=== PATIENT | male | born 1965 | race African-American/Black ===

== ENCOUNTER 2018-05-20 23:11 | Emergency (ER) | payer MEDICAID ==
[~2018-05-20] VITALS: Ht 180.3 cm; Wt 86.3 kg
[2018-05-21 01:21] LABS: BASOPHILS % 0.4 % (0.0-2.0); EOSINOPHILS % 1.7 % (0.0-5.0); HEMATOCRIT. 37.7 % (42.0-52.0); HEMOGLOBIN. 12.1 g/dL (14.0-18.0); LYMPHOCYTES % 67.2 % (20.0-50.0); MEAN CORPUSCULAR HEMOGLOBIN 25.6 pg (28.0-32.0); MEAN CORPUSCULAR VOLUME 79.8 fL (80.0-94.0); MEAN PLATELET VOLUME 8.4 fl (7.4-10.4); MONOCYTES % 10.4 % (2.0-8.0); NEUTROPHILS % 20.3 % (40.0-76.0); PLATELET 180 x1000/uL (130-400); RED BLOOD CELL COUNT 4.72 mill/uL (4.7-6.1)
[2018-05-21 01:29] LABS: CHLORIDE 105 mEq/L (98-107)
[2018-05-21 01:41] LABS: ETHANOL BLOOD < 10 mg/dL
[2018-05-21 01:44] LABS: PARTIAL THROMBOPLASTIN TIME 30.7 sec (23.4-31.0); PROTHROMBIN TIME 10.4 sec (9.1-11.1)
[2018-05-21 02:30] LABS: CLARITY URINE CLEAR (CLEAR); COLOR URINE YELLOW (YELLOW); KETONES URINE NEGATIVE (NEGATIVE); LEUKOCYTE ESTERASE URINE NEGATIVE (NEGATIVE); NITRITE URINE NEGATIVE (NEGATIVE); OCCULT BLOOD URINE NEGATIVE (NEGATIVE); PROTEIN URINE NEGATIVE (NEGATIVE); SPECIFIC GRAVITY URINE 1.005 (1.005-1.030); UROBILINOGEN URINE 0.2 E.U./dL (0.2-1.0)
[2018-05-21 02:42] LABS: *AMPHETAMINES SCREEN URINE NEGATIVE (NEGATIVE); *BARBITURATES SCREEN URINE NEGATIVE (NEGATIVE); *BENZODIAZEPINES SCREEN URINE NEGATIVE (NEGATIVE); *COCAINE SCREEN URINE NEGATIVE (NEGATIVE)
[2018-05-21 02:44] LABS: CANNABINOID URINE SCREEN NEGATIVE (NEGATIVE); METHADONE URINE SCREEN NEGATIVE (NEGATIVE); OPIATES URINE SCREEN NEGATIVE (NEGATIVE); PHENCYCLIDINE URINE SCREEN NEGATIVE (NEGATIVE)
[2018-05-21 12:20] VITALS: BP 128/77
== END 2018-05-21 14:14 ==
LOC: ER 23:31
DX: T65.92XA Toxic effect of unspecified substance, intentional self-harm, initial encounter (principal); F44.81 Dissociative identity disorder; R45.850 Homicidal ideations; E11.9 Type 2 diabetes mellitus without complications; E03.9 Hypothyroidism, unspecified; Y92.89 Other specified places as the place of occurrence of the external cause
CPT/HCPCS: 36415; 80053; 80305; 80307; 80329; 81003; 82140; 82962; 85025; 85610; 85730; 93005; 99285; G0482

== ENCOUNTER 2018-11-18 00:49 | Emergency (ER) | payer MEDICAID ==
[~2018-11-18] VITALS: Ht 177.8 cm; Wt 73.0 kg
[2018-11-18 03:34] LABS: BASOPHILS % 0.4 % (0.0-2.0); EOSINOPHILS % 2.6 % (0.0-5.0); HEMATOCRIT. 33.7 % (42.0-52.0); HEMOGLOBIN. 10.9 g/dL (14.0-18.0); MEAN CORPUSCULAR HEMOGLOBIN 26.7 pg (28.0-32.0); MEAN CORPUSCULAR VOLUME 82.6 fL (80.0-94.0); MEAN PLATELET VOLUME 8.5 fl (7.4-10.4); MONOCYTES % 10.6 % (2.0-8.0); NEUTROPHILS % 38.4 % (40.0-76.0); PLATELET 198 x1000/uL (130-400); RED BLOOD CELL COUNT 4.08 mill/uL (4.7-6.1); RED CELL DISTRIBUTION WIDTH 14.8 % (11.6-14.6)
[2018-11-18 03:40] LABS: CHLORIDE 111 mEq/L (98-107)
[2018-11-18 03:47] LABS: ETHANOL BLOOD < 10 mg/dL
[2018-11-18 06:43] LABS: CLARITY URINE CLEAR (CLEAR); COLOR URINE YELLOW (YELLOW); KETONES URINE NEGATIVE (NEGATIVE); LEUKOCYTE ESTERASE URINE NEGATIVE (NEGATIVE); NITRITE URINE NEGATIVE (NEGATIVE); OCCULT BLOOD URINE NEGATIVE (NEGATIVE); PH URINE 7.5 (4.5-8.0); PROTEIN URINE TRACE (NEGATIVE); SPECIFIC GRAVITY URINE 1.016 (1.005-1.030); UROBILINOGEN URINE 0.2 E.U./dL (0.2-1.0)
[2018-11-18 07:17] LABS: *AMPHETAMINES SCREEN URINE NEGATIVE (NEGATIVE); *BARBITURATES SCREEN URINE NEGATIVE (NEGATIVE); *BENZODIAZEPINES SCREEN URINE NEGATIVE (NEGATIVE); *COCAINE SCREEN URINE NEGATIVE (NEGATIVE); METHADONE URINE SCREEN NEGATIVE (NEGATIVE); OPIATES URINE SCREEN NEGATIVE (NEGATIVE)
[2018-11-18 07:19] LABS: CANNABINOID URINE SCREEN NEGATIVE (NEGATIVE); PHENCYCLIDINE URINE SCREEN NEGATIVE (NEGATIVE)
[2018-11-18] MEDS ORDERED: LORAZEPAM 1MG TABLET PO ONE (09:00)
[2018-11-18] MEDS ORDERED: LORAZEPAM 2MG/ML CPJ IM PRN (09:30)
[2018-11-18] MEDS ORDERED: IBUPROFEN 400MG TABLET PO ONE (20:45)
[2018-11-18] MEDS ORDERED: LEVETIRACETAM 500MG PREMIX 100 ML IV ONE (21:00)
[2018-11-18] MEDS ORDERED: LEVETIRACETAM 500MG TABLET PO ONE (21:30)
[2018-11-19] MEDS ORDERED: ABAC1TAB14 MT (12:17)
[2018-11-19] MEDS ORDERED: QUET400T11 PO (12:17)
[2018-11-19] MEDS ORDERED: LEVO50TA8 PO (12:22)
[2018-11-19] MEDS ORDERED: METF500T MT (12:22)
[2018-11-19] MEDS ORDERED: OXYB5TAB11 MT (12:36)
[2018-11-19] MEDS ORDERED: GABA-531 PO (12:36)
[2018-11-19] MEDS ORDERED: NON FORMULARY PATIENT HOME MED XX SCH (13:15)
[2018-11-19] MEDS ORDERED: QUETIAPINE FUMARATE 50MG TABLET PO SCH (13:15)
[2018-11-19] MEDS ORDERED: OXYBUTYNIN CHLORIDE 5MG TABLET PO ONE (13:15)
[2018-11-19] MEDS ORDERED: METFORMIN HCL 500MG TABLET PO ONE (13:15)
[2018-11-19] MEDS ORDERED: GABAPENTIN 300MG CAPSULE PO ONE (13:15)
[2018-11-19] MEDS ORDERED: QUETIAPINE FUMARATE 50MG TABLET PO NR (14:30)
[2018-11-20] MEDS ORDERED: QUETIAPINE FUMARATE 50MG TABLET PO SCH (07:44)
[2018-11-20] MEDS ORDERED: GABAPENTIN 300MG CAPSULE PO ONE (07:45)
[2018-11-20] MEDS ORDERED: OXYBUTYNIN CHLORIDE 5MG TABLET PO ONE (07:45)
[2018-11-20] MEDS ORDERED: METFORMIN HCL 500MG TABLET PO ONE (07:45)
[2018-11-20] MEDS ORDERED: LEVOTHYROXINE SODIUM 50MCG TABLET PO ONE (08:00)
[2018-11-20 19:40] VITALS: BP 133/88
== END 2018-11-20 20:00 ==
LOC: ER 00:49
DX: R45.851 Suicidal ideations (principal); D64.9 Anemia, unspecified; I10 Essential (primary) hypertension; F31.9 Bipolar disorder, unspecified; E03.9 Hypothyroidism, unspecified; F20.9 Schizophrenia, unspecified; E11.9 Type 2 diabetes mellitus without complications; F17.200 Nicotine dependence, unspecified, uncomplicated
CPT/HCPCS: 36415; 71045; 80053; 80305; 80320; 81003; 82962; 85025; 96372; 99285; J2060; Z7610; J1953; G0480

== ENCOUNTER 2018-12-23 06:29 | Emergency (ER) | payer MEDICAID ==
[~2018-12-23] VITALS: Ht 170.2 cm; Wt 84.0 kg
[~2018-12-23 06:29] MED LIST: ABAC1TAB14 MT; GABA-531 PO; LEVO50TA8 PO; METF500T MT; OXYB5TAB11 MT; QUET400T11 PO
[2018-12-23 08:11] LABS: BASOPHILS % 0.6 % (0.0-2.0); EOSINOPHILS % 1.6 % (0.0-5.0); HEMATOCRIT. 38.2 % (42.0-52.0); HEMOGLOBIN. 12.2 g/dL (14.0-18.0); MEAN CORPUSCULAR HEMOGLOBIN 26.6 pg (28.0-32.0); MEAN CORPUSCULAR VOLUME 82.9 fL (80.0-94.0); MEAN PLATELET VOLUME 8.4 fl (7.4-10.4); NEUTROPHILS % 25.8 % (40.0-76.0); PLATELET 227 x1000/uL (130-400); RED CELL DISTRIBUTION WIDTH 15.5 % (11.6-14.6)
[2018-12-23 08:12] LABS: CLARITY URINE CLEAR (CLEAR); COLOR URINE YELLOW (YELLOW); KETONES URINE NEGATIVE (NEGATIVE); LEUKOCYTE ESTERASE URINE NEGATIVE (NEGATIVE); NITRITE URINE NEGATIVE (NEGATIVE); OCCULT BLOOD URINE NEGATIVE (NEGATIVE); PROTEIN URINE NEGATIVE (NEGATIVE); SPECIFIC GRAVITY URINE 1.008 (1.005-1.030); UROBILINOGEN URINE 0.2 E.U./dL (0.2-1.0)
[2018-12-23 08:20] LABS: CHLORIDE 112 mEq/L (98-107)
[2018-12-23 08:41] LABS: METHADONE URINE SCREEN NEGATIVE (NEGATIVE); OPIATES URINE SCREEN NEGATIVE (NEGATIVE)
[2018-12-23 08:43] LABS: *AMPHETAMINES SCREEN URINE NEGATIVE (NEGATIVE); *BARBITURATES SCREEN URINE NEGATIVE (NEGATIVE); *BENZODIAZEPINES SCREEN URINE NEGATIVE (NEGATIVE); *COCAINE SCREEN URINE NEGATIVE (NEGATIVE); CANNABINOID URINE SCREEN NEGATIVE (NEGATIVE); PHENCYCLIDINE URINE SCREEN NEGATIVE (NEGATIVE)
[2018-12-23 08:45] LABS: ETHANOL BLOOD < 10 mg/dL
[2018-12-23 14:30] VITALS: BP 122/82
== END 2018-12-23 14:45 | disposition home or self-care (01) ==
LOC: ER 06:29
DX: F20.0 Paranoid schizophrenia (principal); F31.9 Bipolar disorder, unspecified; E11.9 Type 2 diabetes mellitus without complications; I10 Essential (primary) hypertension; Z88.0 Allergy status to penicillin; Z79.899 Other long term (current) drug therapy; Z88.8 Allergy status to other drugs, medicaments and biological substances
CPT/HCPCS: 36415; 80305; 80307; 80320; 80329; 81003; 82962; 99284; G0480

== ENCOUNTER 2019-11-21 10:35 | Emergency (ER) | payer MEDICAID ==
[~2019-11-21] VITALS: Ht 188 cm; Wt 91.0 kg
[~2019-11-21 10:35] MED LIST changes: -OXYB5TAB11 MT; +OXYB5TAB17 MT
[2019-11-21] MEDS ORDERED: LORAZEPAM 2MG/ML CPJ ONE (11:12)
[2019-11-21] MEDS ORDERED: LORAZEPAM 2MG/ML CPJ IV ONE (11:15)
[2019-11-21 11:36] LABS: BASOPHILS % 0.6 % (0.0-2.0); EOSINOPHILS % 0.4 % (0.0-5.0); HEMATOCRIT. 42.1 % (42.0-52.0); HEMOGLOBIN. 13.4 g/dL (14.0-18.0); LYMPHOCYTES % 59.7 % (20.0-50.0); MEAN CORPUSCULAR HEMOGLOBIN 27.1 pg (28.0-32.0); MEAN CORPUSCULAR VOLUME 85.3 fL (80.0-94.0); MEAN PLATELET VOLUME 9.4 fl (7.4-10.4); MONOCYTES % 8.6 % (2.0-8.0); NEUTROPHILS % 30.7 % (40.0-76.0); PLATELET 228 x1000/uL (130-400); RED BLOOD CELL COUNT 4.93 mill/uL (4.7-6.1); RED CELL DISTRIBUTION WIDTH 14.2 % (11.6-14.6)
[2019-11-21 11:42] LABS: CHLORIDE 111 mEq/L (98-107)
[2019-11-21 11:46] LABS: ETHANOL BLOOD < 10 mg/dL
[2019-11-21] MEDS ORDERED: LEVETIRACETAM 1000MG/100ML 100 ML IV NR (12:00)
[2019-11-21 12:30] LABS: CLARITY URINE CLEAR (CLEAR); COLOR URINE YELLOW (YELLOW); KETONES URINE TRACE (NEGATIVE); LEUKOCYTE ESTERASE URINE NEGATIVE (NEGATIVE); NITRITE URINE NEGATIVE (NEGATIVE); OCCULT BLOOD URINE NEGATIVE (NEGATIVE); PROTEIN URINE 2+ (NEGATIVE); SPECIFIC GRAVITY URINE 1.018 (1.005-1.030)
[2019-11-21 12:48] LABS: *AMPHETAMINES SCREEN URINE NEGATIVE (NEGATIVE); *BARBITURATES SCREEN URINE NEGATIVE (NEGATIVE); *BENZODIAZEPINES SCREEN URINE NEGATIVE (NEGATIVE); *COCAINE SCREEN URINE NEGATIVE (NEGATIVE)
[2019-11-21 12:49] LABS: CANNABINOID URINE SCREEN NEGATIVE (NEGATIVE); METHADONE URINE SCREEN NEGATIVE (NEGATIVE); OPIATES URINE SCREEN NEGATIVE (NEGATIVE); PHENCYCLIDINE URINE SCREEN NEGATIVE (NEGATIVE)
[2019-11-21 15:00] VITALS: BP 125/82
== END 2019-11-21 15:30 | disposition left against medical advice (07) ==
LOC: ER 10:35 → EDBEDREQTM 11:59 → EDBEDREQ 11:59 → ER 15:30 → CANBEDREQ 16:44
DX: G93.40 Encephalopathy, unspecified (principal); R56.9 Unspecified convulsions; R41.82 Altered mental status, unspecified; E11.9 Type 2 diabetes mellitus without complications; I10 Essential (primary) hypertension; E03.9 Hypothyroidism, unspecified; Z88.0 Allergy status to penicillin; Z88.6 Allergy status to analgesic agent; Z88.8 Allergy status to other drugs, medicaments and biological substances; Z79.899 Other long term (current) drug therapy; Z87.891 Personal history of nicotine dependence
CPT/HCPCS: 36415; 70450; 80053; 80305; 80320; 81003; 82962; 83735; 85025; 93005; 96374; 96375; 99285; J1953; J2060; Z7610; G0480

== ENCOUNTER 2021-07-19 22:35 | Emergency (ER) | payer MEDICAID ==
[~2021-07-19] VITALS: Ht 167.6 cm; Wt 83.0 kg
[~2021-07-19 22:35] MED LIST changes: -GABA-531 PO; +GABA-532 PO; -QUET400T11 PO; +QUET400T12 PO
[2021-07-19 23:57] LABS: BASOPHILS % 0.7 % (0.0-2.0); EOSINOPHILS % 0.5 % (0.0-5.0); HEMATOCRIT. 36.4 % (42.0-52.0); HEMOGLOBIN. 11.7 g/dL (14.0-18.0); LYMPHOCYTES % 57.8 % (20.0-50.0); MEAN CORPUSCULAR HEMOGLOBIN 25.8 pg (28.0-32.0); MEAN CORPUSCULAR VOLUME 80.6 fL (80.0-94.0); MEAN PLATELET VOLUME 8.4 fl (7.4-10.4); MONOCYTES % 12.8 % (2.0-8.0); NEUTROPHILS % 28.2 % (40.0-76.0); PLATELET 230 x1000/uL (130-400); RED BLOOD CELL COUNT 4.51 mill/uL (4.7-6.1); RED CELL DISTRIBUTION WIDTH 16.1 % (11.6-14.6)
[2021-07-20] MEDS ORDERED: LORAZEPAM 2MG/ML CPJ IM ONE
[2021-07-20] MEDS ORDERED: OLANZAPINE 10 MG/VIAL IM ONE
[2021-07-20 00:04] LABS: CHLORIDE 109 mEq/L (98-107)
[2021-07-20 00:09] LABS: ETHANOL BLOOD < 10 mg/dL
[2021-07-20 01:47] LABS: CLARITY URINE CLEAR (CLEAR); COLOR URINE YELLOW (YELLOW); KETONES URINE TRACE (NEGATIVE); LEUKOCYTE ESTERASE URINE NEGATIVE (NEGATIVE); NITRITE URINE NEGATIVE (NEGATIVE); OCCULT BLOOD URINE NEGATIVE (NEGATIVE); PH URINE 6.5 (4.5-8.0); PROTEIN URINE 2+ (NEGATIVE); SPECIFIC GRAVITY URINE 1.022 (1.005-1.030)
[2021-07-20 02:04] LABS: *AMPHETAMINES SCREEN URINE NEGATIVE (NEGATIVE); *BARBITURATES SCREEN URINE NEGATIVE (NEGATIVE); *BENZODIAZEPINES SCREEN URINE NEGATIVE (NEGATIVE); *COCAINE SCREEN URINE NEGATIVE (NEGATIVE)
[2021-07-20 02:05] LABS: CANNABINOID URINE SCREEN NEGATIVE (NEGATIVE); METHADONE URINE SCREEN NEGATIVE (NEGATIVE); OPIATES URINE SCREEN NEGATIVE (NEGATIVE); PHENCYCLIDINE URINE SCREEN NEGATIVE (NEGATIVE)
[2021-07-20] MEDS: FLUOXETINE HCL 10 MG CAPSULE PO SCH ×2 (11:06→21:43)
[2021-07-20] MEDS: DIVALPROEX SODIUM 250MG DR TABLET PO SCH (21:00)
[2021-07-20] MEDS ORDERED: TRAZODONE HCL 50MG TABLET PO SCH (21:00)
[2021-07-20] MEDS: RISPERIDONE 0.5MG TABLET PO SCH (21:44)
[2021-07-21] MEDS ORDERED: LEVETIRACETAM 500MG TABLET PO SCH (09:00)
[2021-07-21] MEDS: DIVALPROEX SODIUM 250MG DR TABLET PO SCH (11:02)
[2021-07-21] MEDS: RISPERIDONE 0.5MG TABLET PO SCH (11:03)
[2021-07-21] MEDS ORDERED: ABACAVIR/LAMIVUDINE/ZIDOVUDINE 300/150/300MG TABLET PO ONE (12:00)
[2021-07-21 13:08] VITALS: BP 120/83
== END 2021-07-21 14:19 ==
LOC: ER 22:35
DX: F23 Brief psychotic disorder (principal); F31.9 Bipolar disorder, unspecified; E11.9 Type 2 diabetes mellitus without complications; I10 Essential (primary) hypertension; E03.9 Hypothyroidism, unspecified; R45.851 Suicidal ideations; D64.9 Anemia, unspecified; Z20.822 Contact with and (suspected) exposure to COVID-19; Z88.8 Allergy status to other drugs, medicaments and biological substances; Z88.0 Allergy status to penicillin; Z79.84 Long term (current) use of oral hypoglycemic drugs; Z75.1 Person awaiting admission to adequate facility elsewhere
CPT/HCPCS: 36415; 80053; 80307; 80320; 80329; 82962; 84443; 85025; 96372; 99285; J2060; J3490; G0480

== ENCOUNTER 2021-08-06 00:01 | Emergency (ER) | payer MEDICAID ==
[~2021-08-06] VITALS: Ht 167.6 cm; Wt 83.0 kg
[2021-08-06 00:52] LABS: BASOPHILS % 0.6 % (0.0-2.0); EOSINOPHILS % 1.6 % (0.0-5.0); HEMATOCRIT. 35.2 % (42.0-52.0); HEMOGLOBIN. 11.5 g/dL (14.0-18.0); LYMPHOCYTES % 58.9 % (20.0-50.0); MEAN CORPUSCULAR HEMOGLOBIN 26.5 pg (28.0-32.0); MEAN CORPUSCULAR VOLUME 80.8 fL (80.0-94.0); MEAN PLATELET VOLUME 8.1 fl (7.4-10.4); MONOCYTES % 7.9 % (2.0-8.0); PLATELET 220 x1000/uL (130-400); RED BLOOD CELL COUNT 4.36 mill/uL (4.7-6.1)
[2021-08-06 01:03] LABS: CHLORIDE 107 mEq/L (98-107)
[2021-08-06 01:07] LABS: ETHANOL BLOOD < 10 mg/dL
[2021-08-06 01:45] LABS: CLARITY URINE CLEAR (CLEAR); COLOR URINE YELLOW (YELLOW); KETONES URINE TRACE (NEGATIVE); LEUKOCYTE ESTERASE URINE NEGATIVE (NEGATIVE); NITRITE URINE NEGATIVE (NEGATIVE); OCCULT BLOOD URINE NEGATIVE (NEGATIVE); PH URINE 6.5 (4.5-8.0); PROTEIN URINE 1+ (NEGATIVE); SPECIFIC GRAVITY URINE 1.025 (1.005-1.030)
[2021-08-06 02:00] LABS: *AMPHETAMINES SCREEN URINE NEGATIVE (NEGATIVE); *BARBITURATES SCREEN URINE NEGATIVE (NEGATIVE); *BENZODIAZEPINES SCREEN URINE NEGATIVE (NEGATIVE); *COCAINE SCREEN URINE NEGATIVE (NEGATIVE); METHADONE URINE SCREEN NEGATIVE (NEGATIVE)
[2021-08-06 02:01] LABS: CANNABINOID URINE SCREEN NEGATIVE (NEGATIVE); OPIATES URINE SCREEN NEGATIVE (NEGATIVE); PHENCYCLIDINE URINE SCREEN NEGATIVE (NEGATIVE)
[2021-08-06] MEDS: DIVALPROEX SODIUM 500MG DR TABLET PO SCH ×2 (09:00→21:45)
[2021-08-06] MEDS: QUETIAPINE FUMARATE 50MG TABLET PO SCH ×2 (09:00→21:45)
[2021-08-06] MEDS: GABAPENTIN 300MG CAPSULE PO SCH (20:42)
[2021-08-07] MEDS: QUETIAPINE FUMARATE 50MG TABLET PO SCH (08:19)
[2021-08-07] MEDS: DIVALPROEX SODIUM 500MG DR TABLET PO SCH (08:19)
[2021-08-07] MEDS: GABAPENTIN 300MG CAPSULE PO SCH (08:22)
[2021-08-07 11:20] VITALS: BP 127/71
== END 2021-08-07 11:21 | disposition home or self-care (01) ==
LOC: ER 00:01
DX: F25.9 Schizoaffective disorder, unspecified (principal); R45.851 Suicidal ideations; F31.9 Bipolar disorder, unspecified; E11.9 Type 2 diabetes mellitus without complications; I10 Essential (primary) hypertension; Z20.822 Contact with and (suspected) exposure to COVID-19; Z79.84 Long term (current) use of oral hypoglycemic drugs; Z91.14 Patient's other noncompliance with medication regimen; Z75.1 Person awaiting admission to adequate facility elsewhere; Z88.0 Allergy status to penicillin
CPT/HCPCS: 36415; 80053; 80305; 80307; 80320; 80329; 81003; 85025; 99285; C9803; U0003; U0005; G0480

== ENCOUNTER 2021-08-22 23:31 | Emergency (ER) | payer MEDICAID ==
[~2021-08-22] VITALS: Ht 167.6 cm; Wt 84.0 kg
[2021-08-23 02:51] LABS: BASOPHILS % 0.4 % (0.0-2.0); EOSINOPHILS % 0.8 % (0.0-5.0); HEMOGLOBIN. 11.9 g/dL (14.0-18.0); LYMPHOCYTES % 59.5 % (20.0-50.0); MEAN CORPUSCULAR HEMOGLOBIN 25.6 pg (28.0-32.0); MEAN CORPUSCULAR VOLUME 81.6 fL (80.0-94.0); MONOCYTES % 9.5 % (2.0-8.0); NEUTROPHILS % 29.8 % (40.0-76.0); PLATELET 201 x1000/uL (130-400); RED BLOOD CELL COUNT 4.65 mill/uL (4.7-6.1); RED CELL DISTRIBUTION WIDTH 16.1 % (11.6-14.6)
[2021-08-23 02:53] LABS: CHLORIDE 109 mEq/L (98-107)
[2021-08-23 02:57] LABS: ETHANOL BLOOD < 10 mg/dL
[2021-08-23 08:04] LABS: CLARITY URINE CLEAR (CLEAR); COLOR URINE YELLOW (YELLOW); KETONES URINE 1+ (NEGATIVE); LEUKOCYTE ESTERASE URINE NEGATIVE (NEGATIVE); NITRITE URINE NEGATIVE (NEGATIVE); OCCULT BLOOD URINE NEGATIVE (NEGATIVE); PROTEIN URINE 1+ (NEGATIVE); SPECIFIC GRAVITY URINE 1.015 (1.005-1.030); UROBILINOGEN URINE 0.2 E.U./dL (0.2-1.0)
[2021-08-23 08:13] LABS: *AMPHETAMINES SCREEN URINE NEGATIVE (NEGATIVE); *BARBITURATES SCREEN URINE NEGATIVE (NEGATIVE); *BENZODIAZEPINES SCREEN URINE NEGATIVE (NEGATIVE); *COCAINE SCREEN URINE NEGATIVE (NEGATIVE); CANNABINOID URINE SCREEN NEGATIVE (NEGATIVE); METHADONE URINE SCREEN NEGATIVE (NEGATIVE); OPIATES URINE SCREEN NEGATIVE (NEGATIVE)
[2021-08-23 08:14] LABS: PHENCYCLIDINE URINE SCREEN NEGATIVE (NEGATIVE)
[2021-08-23] MEDS ORDERED: DIVALPROEX SODIUM 250MG DR TABLET PO SCH (11:45)
[2021-08-23] MEDS ORDERED: SERTRALINE HCL 25MG TABLET PO SCH (11:45)
[2021-08-23] MEDS ORDERED: OLANZAPINE 5MG TABLET PO SCH (11:45)
[2021-08-23 14:00] VITALS: BP 112/60
== END 2021-08-23 15:23 | disposition home or self-care (01) ==
LOC: ER 23:31
DX: R45.851 Suicidal ideations (principal); F20.9 Schizophrenia, unspecified; F31.9 Bipolar disorder, unspecified; I10 Essential (primary) hypertension; E03.9 Hypothyroidism, unspecified; F17.210 Nicotine dependence, cigarettes, uncomplicated; Z88.0 Allergy status to penicillin; Z88.8 Allergy status to other drugs, medicaments and biological substances
CPT/HCPCS: 36415; 80053; 80305; 80320; 81003; 85025; 99285; G0480

== ENCOUNTER 2021-09-24 22:42 | Emergency (ER) | payer MEDICAID ==
[~2021-09-24] VITALS: Ht 167.6 cm; Wt 87.2 kg
[2021-09-24 23:50] LABS: BASOPHILS % 0.5 % (0.0-2.0); EOSINOPHILS % 0.7 % (0.0-5.0); HEMOGLOBIN. 12.2 g/dL (14.0-18.0); LYMPHOCYTES % 53.4 % (20.0-50.0); MEAN CORPUSCULAR HEMOGLOBIN 26.2 pg (28.0-32.0); MEAN CORPUSCULAR VOLUME 81.6 fL (80.0-94.0); MEAN PLATELET VOLUME 8.4 fl (7.4-10.4); MONOCYTES % 7.7 % (2.0-8.0); NEUTROPHILS % 37.7 % (40.0-76.0); PLATELET 187 x1000/uL (130-400); RED BLOOD CELL COUNT 4.66 mill/uL (4.7-6.1); RED CELL DISTRIBUTION WIDTH 15.2 % (11.6-14.6)
[2021-09-24 23:56] LABS: CHLORIDE 109 mEq/L (98-107)
[2021-09-25 00:05] LABS: ETHANOL BLOOD < 10 mg/dL
[2021-09-25 00:44] LABS: CLARITY URINE CLEAR (CLEAR); COLOR URINE YELLOW (YELLOW); KETONES URINE NEGATIVE (NEGATIVE); LEUKOCYTE ESTERASE URINE NEGATIVE (NEGATIVE); NITRITE URINE NEGATIVE (NEGATIVE); OCCULT BLOOD URINE NEGATIVE (NEGATIVE); PROTEIN URINE NEGATIVE (NEGATIVE); SPECIFIC GRAVITY URINE 1.013 (1.005-1.030); UROBILINOGEN URINE 0.2 E.U./dL (0.2-1.0)
[2021-09-25 01:00] LABS: *AMPHETAMINES SCREEN URINE NEGATIVE (NEGATIVE); *BARBITURATES SCREEN URINE NEGATIVE (NEGATIVE); *BENZODIAZEPINES SCREEN URINE NEGATIVE (NEGATIVE); *COCAINE SCREEN URINE NEGATIVE (NEGATIVE); CANNABINOID URINE SCREEN NEGATIVE (NEGATIVE); METHADONE URINE SCREEN NEGATIVE (NEGATIVE); OPIATES URINE SCREEN NEGATIVE (NEGATIVE); PHENCYCLIDINE URINE SCREEN NEGATIVE (NEGATIVE)
[2021-09-25] MEDS ORDERED: ZIPRASIDONE MESYLATE 20MG/VIAL IM ONE (02:45)
[2021-09-25] MEDS ORDERED: LORAZEPAM 1MG TABLET PO ONE (02:45)
[2021-09-25] MEDS ORDERED: DIPHENHYDRAMINE 25MG CAPSULE PO ONE (02:45)
[2021-09-25 11:21] VITALS: BP 128/83
== END 2021-09-25 11:24 | disposition home or self-care (01) ==
LOC: ER 22:42
DX: F23 Brief psychotic disorder (principal); R45.851 Suicidal ideations; F32.A Depression, unspecified; E11.9 Type 2 diabetes mellitus without complications; I10 Essential (primary) hypertension; E03.9 Hypothyroidism, unspecified; F17.210 Nicotine dependence, cigarettes, uncomplicated; Z20.822 Contact with and (suspected) exposure to COVID-19; Z79.84 Long term (current) use of oral hypoglycemic drugs; Z88.8 Allergy status to other drugs, medicaments and biological substances; Z88.0 Allergy status to penicillin
CPT/HCPCS: 36415; 80053; 80305; 80307; 80320; 80329; 81003; 85025; 96372; 99285; C9803; J3486; U0003; U0005; Q0163; G0480

== ENCOUNTER 2021-10-19 03:48 | Emergency (ER) | payer MEDICAID ==
[~2021-10-19] VITALS: Ht 167.6 cm; Wt 85.0 kg
[2021-10-19 07:02] LABS: BASOPHILS % 0.8 % (0.0-2.0); EOSINOPHILS % 0.4 % (0.0-5.0); HEMATOCRIT. 38.6 % (42.0-52.0); HEMOGLOBIN. 12.4 g/dL (14.0-18.0); LYMPHOCYTES % 66.8 % (20.0-50.0); MEAN PLATELET VOLUME 8.5 fl (7.4-10.4); MONOCYTES % 9.7 % (2.0-8.0); NEUTROPHILS % 22.3 % (40.0-76.0); PLATELET 188 x1000/uL (130-400); RED BLOOD CELL COUNT 4.77 mill/uL (4.7-6.1); RED CELL DISTRIBUTION WIDTH 14.7 % (11.6-14.6)
[2021-10-19 07:10] LABS: CHLORIDE 108 mEq/L (98-107)
[2021-10-19 07:25] LABS: ETHANOL BLOOD < 10 mg/dL
[2021-10-19 07:35] LABS: CLARITY URINE CLEAR (CLEAR); COLOR URINE YELLOW (YELLOW); KETONES URINE TRACE (NEGATIVE); LEUKOCYTE ESTERASE URINE NEGATIVE (NEGATIVE); NITRITE URINE NEGATIVE (NEGATIVE); OCCULT BLOOD URINE NEGATIVE (NEGATIVE); PROTEIN URINE 1+ (NEGATIVE); SPECIFIC GRAVITY URINE 1.022 (1.005-1.030)
[2021-10-19 07:51] LABS: *AMPHETAMINES SCREEN URINE NEGATIVE (NEGATIVE); *BARBITURATES SCREEN URINE NEGATIVE (NEGATIVE); *BENZODIAZEPINES SCREEN URINE NEGATIVE (NEGATIVE); *COCAINE SCREEN URINE NEGATIVE (NEGATIVE); CANNABINOID URINE SCREEN NEGATIVE (NEGATIVE); METHADONE URINE SCREEN NEGATIVE (NEGATIVE); OPIATES URINE SCREEN NEGATIVE (NEGATIVE); PHENCYCLIDINE URINE SCREEN NEGATIVE (NEGATIVE)
[2021-10-19] MEDS: QUETIAPINE FUMARATE 50MG TABLET PO SCH ×2 (10:15→21:55)
[2021-10-19] MEDS: DIVALPROEX SODIUM 250MG DR TABLET PO SCH ×2 (10:15→21:54)
[2021-10-19] MEDS: TRAZODONE HCL 50MG TABLET PO SCH (21:54)
[2021-10-20] MEDS: METFORMIN HCL 500MG TABLET PO SCH ×2 (08:33→17:54)
[2021-10-20] MEDS: DIVALPROEX SODIUM 250MG DR TABLET PO SCH ×2 (08:34→21:15)
[2021-10-20] MEDS: QUETIAPINE FUMARATE 50MG TABLET PO SCH ×2 (08:34→21:15)
[2021-10-20] MEDS: LEVETIRACETAM 500MG TABLET PO SCH ×2 (08:34→21:15)
[2021-10-20] MEDS: TRAZODONE HCL 50MG TABLET PO SCH (21:15)
[2021-10-21 07:44] VITALS: BP 124/74
== END 2021-10-21 09:22 | disposition home or self-care (01) ==
LOC: ER 03:48
DX: R45.851 Suicidal ideations (principal); F31.9 Bipolar disorder, unspecified; E11.9 Type 2 diabetes mellitus without complications; I10 Essential (primary) hypertension; F20.9 Schizophrenia, unspecified; E03.9 Hypothyroidism, unspecified; Z79.899 Other long term (current) drug therapy; Z88.0 Allergy status to penicillin; Z20.822 Contact with and (suspected) exposure to COVID-19
CPT/HCPCS: 36415; 80053; 80305; 80307; 80320; 80329; 81003; 84443; 85025; 87426; 99285; C9803; U0003; U0005; G0480

== ENCOUNTER 2021-12-09 23:25 | Emergency (ER) | payer MEDICAID ==
[~2021-12-09] VITALS: Ht 167.6 cm; Wt 87.7 kg
[2021-12-10 00:55] LABS: MEAN CORPUSCULAR HEMOGLOBIN 25.6 pg (28.0-32.0); MEAN CORPUSCULAR VOLUME 81.4 fL (80.0-94.0); MEAN PLATELET VOLUME 8.1 fl (7.4-10.4); PLATELET 190 x1000/uL (130-400); RED BLOOD CELL COUNT 4.31 mill/uL (4.7-6.1); RED CELL DISTRIBUTION WIDTH 15.4 % (11.6-14.6)
[2021-12-10 01:32] LABS: CHLORIDE 109 mEq/L (98-107)
[2021-12-10 01:40] LABS: ETHANOL BLOOD < 10 mg/dL
[2021-12-10 01:50] LABS: PLATELET ESTIMATE NORMAL
[2021-12-10] MEDS ORDERED: MIDAZOLAM HCL 2 MG/2 ML VIAL IM NR (04:30)
[2021-12-10] MEDS ORDERED: DIPHENHYDRAMINE 50MG/ML VIAL IM NR (04:30)
[2021-12-10] MEDS ORDERED: OLANZAPINE 10 MG/VIAL IM NR (04:30)
[2021-12-10 05:47] LABS: *AMPHETAMINES SCREEN URINE NEGATIVE (NEGATIVE); *BARBITURATES SCREEN URINE NEGATIVE (NEGATIVE); *BENZODIAZEPINES SCREEN URINE NEGATIVE (NEGATIVE); *COCAINE SCREEN URINE NEGATIVE (NEGATIVE); CANNABINOID URINE SCREEN NEGATIVE (NEGATIVE); METHADONE URINE SCREEN NEGATIVE (NEGATIVE); OPIATES URINE SCREEN NEGATIVE (NEGATIVE); PHENCYCLIDINE URINE SCREEN NEGATIVE (NEGATIVE)
[2021-12-10] MEDS: DIVALPROEX SODIUM 500MG DR TABLET PO SCH ×2 (11:30→21:30)
[2021-12-10] MEDS: SERTRALINE HCL 50MG TABLET PO SCH (11:30)
[2021-12-10] MEDS ORDERED: QUETIAPINE FUMARATE 50MG TABLET PO SCH (21:00)
[2021-12-11] MEDS: SERTRALINE HCL 50MG TABLET PO SCH (08:08)
[2021-12-11] MEDS: DIVALPROEX SODIUM 500MG DR TABLET PO SCH (08:10)
[2021-12-11 11:08] VITALS: BP 122/64
== END 2021-12-11 11:22 ==
LOC: ER 23:25
DX: F20.9 Schizophrenia, unspecified (principal); F31.9 Bipolar disorder, unspecified; R45.851 Suicidal ideations; F10.10 Alcohol abuse, uncomplicated; Y90.0 Blood alcohol level of less than 20 mg/100 ml; Z20.822 Contact with and (suspected) exposure to COVID-19; Z88.8 Allergy status to other drugs, medicaments and biological substances; Z88.0 Allergy status to penicillin
CPT/HCPCS: 36415; 80053; 80305; 80307; 80320; 80329; 85025; 87426; 96372; 99284; C9803; J1200; J2250; J3490; U0003; U0005; Z7610; G0480

== ENCOUNTER 2022-01-03 20:04 | Emergency (ER) | payer MEDICAID ==
[~2022-01-03] VITALS: Ht 162.6 cm; Wt 85.6 kg
[2022-01-03] MEDS ORDERED: OLANZAPINE 10MG TABLET PO STA (21:54)
[2022-01-03] MEDS ORDERED: OLANZAPINE 10 MG/VIAL IM ONE (22:45)
[2022-01-03] MEDS ORDERED: LEVETIRACETAM 500MG TABLET PO ONE (22:45)
[2022-01-03 22:47] LABS: HEMATOCRIT. 36.9 % (42.0-52.0); HEMOGLOBIN. 11.7 g/dL (14.0-18.0); MEAN CORPUSCULAR HEMOGLOBIN 25.7 pg (28.0-32.0); MEAN CORPUSCULAR VOLUME 80.9 fL (80.0-94.0); PLATELET 222 x1000/uL (130-400); RED BLOOD CELL COUNT 4.57 mill/uL (4.7-6.1); RED CELL DISTRIBUTION WIDTH 15.1 % (11.6-14.6)
[2022-01-03 22:50] LABS: CHLORIDE 106 mEq/L (98-107)
[2022-01-03 22:58] LABS: ETHANOL BLOOD < 10 mg/dL
[2022-01-03 23:35] LABS: PLATELET ESTIMATE NORMAL
[2022-01-03 23:36] LABS: CLARITY URINE CLEAR (CLEAR); COLOR URINE YELLOW (YELLOW); KETONES URINE TRACE (NEGATIVE); LEUKOCYTE ESTERASE URINE NEGATIVE (NEGATIVE); NITRITE URINE NEGATIVE (NEGATIVE); OCCULT BLOOD URINE NEGATIVE (NEGATIVE); PH URINE 6.5 (4.5-8.0); PROTEIN URINE 1+ (NEGATIVE)
[2022-01-04 00:15] LABS: *AMPHETAMINES SCREEN URINE NEGATIVE (NEGATIVE); *BARBITURATES SCREEN URINE NEGATIVE (NEGATIVE); *BENZODIAZEPINES SCREEN URINE NEGATIVE (NEGATIVE); *COCAINE SCREEN URINE NEGATIVE (NEGATIVE); CANNABINOID URINE SCREEN NEGATIVE (NEGATIVE); METHADONE URINE SCREEN NEGATIVE (NEGATIVE); OPIATES URINE SCREEN NEGATIVE (NEGATIVE); PHENCYCLIDINE URINE SCREEN NEGATIVE (NEGATIVE)
[2022-01-04] MEDS ORDERED: LEVOTHYROXINE SODIUM 50MCG TABLET PO ONE (07:30)
[2022-01-04] MEDS: METFORMIN HCL 500MG TABLET PO SCH ×2 (08:12→17:00)
[2022-01-04] MEDS: LEVETIRACETAM 500MG TABLET PO SCH ×2 (08:12→20:45)
[2022-01-04] MEDS: OLANZAPINE 5MG TABLET PO SCH (09:38)
[2022-01-04] MEDS: DIVALPROEX SODIUM 500MG DR TABLET PO SCH ×3 (09:38→22:00)
[2022-01-04] MEDS: QUETIAPINE FUMARATE 50MG TABLET PO SCH (20:45)
[2022-01-05] MEDS: DIVALPROEX SODIUM 500MG DR TABLET PO SCH ×3 (06:00→21:08)
[2022-01-05] MEDS: OLANZAPINE 5MG TABLET PO SCH (09:42)
[2022-01-05] MEDS: QUETIAPINE FUMARATE 50MG TABLET PO SCH (21:08)
[2022-01-06] MEDS: DIVALPROEX SODIUM 500MG DR TABLET PO SCH ×2 (06:32→14:46)
[2022-01-06] MEDS: OLANZAPINE 5MG TABLET PO SCH (08:56)
[2022-01-06 15:51] VITALS: BP 133/82
== END 2022-01-06 16:24 | disposition still patient (30) ==
LOC: ER 20:04
DX: R45.850 Homicidal ideations (principal); E11.9 Type 2 diabetes mellitus without complications; G40.909 Epilepsy, unspecified, not intractable, without status epilepticus; I10 Essential (primary) hypertension; D64.9 Anemia, unspecified; Z20.822 Contact with and (suspected) exposure to COVID-19; Z79.84 Long term (current) use of oral hypoglycemic drugs; Z88.8 Allergy status to other drugs, medicaments and biological substances; Z88.0 Allergy status to penicillin
CPT/HCPCS: 36415; 80053; 80165; 80305; 80307; 80320; 80329; 81003; 85025; 87426; 96372; 99285; C9803; J3490; U0003; U0005; Z7610; G0480

== ENCOUNTER 2022-01-30 00:48 | Emergency (ER) | payer MEDICAID ==
[~2022-01-30] VITALS: Ht 167.6 cm; Wt 87.0 kg
[2022-01-30 02:07] LABS: CLARITY URINE CLEAR (CLEAR); COLOR URINE YELLOW (YELLOW); KETONES URINE NEGATIVE (NEGATIVE); LEUKOCYTE ESTERASE URINE NEGATIVE (NEGATIVE); NITRITE URINE NEGATIVE (NEGATIVE); OCCULT BLOOD URINE NEGATIVE (NEGATIVE); PROTEIN URINE 1+ (NEGATIVE); SPECIFIC GRAVITY URINE 1.014 (1.005-1.030); UROBILINOGEN URINE 0.2 E.U./dL (0.2-1.0)
[2022-01-30 02:17] LABS: BASOPHILS % 0.6 % (0.0-2.0); EOSINOPHILS % 0.9 % (0.0-5.0); HEMATOCRIT. 38.1 % (42.0-52.0); HEMOGLOBIN. 11.9 g/dL (14.0-18.0); MEAN CORPUSCULAR HEMOGLOBIN 25.7 pg (28.0-32.0); MEAN CORPUSCULAR VOLUME 82.6 fL (80.0-94.0); MEAN PLATELET VOLUME 8.4 fl (7.4-10.4); MONOCYTES % 11.8 % (2.0-8.0); NEUTROPHILS % 40.7 % (40.0-76.0); PLATELET 217 x1000/uL (130-400); RED BLOOD CELL COUNT 4.61 mill/uL (4.7-6.1); RED CELL DISTRIBUTION WIDTH 15.8 % (11.6-14.6)
[2022-01-30 02:25] LABS: *AMPHETAMINES SCREEN URINE NEGATIVE (NEGATIVE); *BARBITURATES SCREEN URINE NEGATIVE (NEGATIVE); *BENZODIAZEPINES SCREEN URINE NEGATIVE (NEGATIVE); *COCAINE SCREEN URINE NEGATIVE (NEGATIVE); CANNABINOID URINE SCREEN NEGATIVE (NEGATIVE); METHADONE URINE SCREEN NEGATIVE (NEGATIVE); OPIATES URINE SCREEN NEGATIVE (NEGATIVE); PHENCYCLIDINE URINE SCREEN NEGATIVE (NEGATIVE)
[2022-01-30 02:25] LABS: CHLORIDE 106 mEq/L (98-107)
[2022-01-30 02:33] LABS: ETHANOL BLOOD < 10 mg/dL
[2022-01-30] MEDS ORDERED: HALOPERIDOL LACTATE 5MG/ML VIAL IM ONE (04:00)
[2022-01-30 06:30] VITALS: BP 112/77
== END 2022-01-30 07:47 | disposition home or self-care (01) ==
LOC: ER 00:48
DX: R45.851 Suicidal ideations (principal); F12.10 Cannabis abuse, uncomplicated; I10 Essential (primary) hypertension; Z88.0 Allergy status to penicillin; Z88.8 Allergy status to other drugs, medicaments and biological substances; Z86.59 Personal history of other mental and behavioral disorders; Z86.39 Personal history of other endocrine, nutritional and metabolic disease
CPT/HCPCS: 36415; 80053; 80305; 80307; 80320; 80329; 81003; 82962; 85025; 96372; 99283; J1630; G0480

== ENCOUNTER 2022-02-27 21:01 | Emergency (ER) | payer MEDICAID ==
[~2022-02-27] VITALS: Ht 167.6 cm; Wt 89.4 kg
[2022-02-27] MEDS ORDERED: TRAZODONE HCL 50MG TABLET PO SCH (22:45)
[2022-02-27] MEDS ORDERED: QUETIAPINE FUMARATE 25MG TABLET PO SCH (22:45)
[2022-02-27 22:53] LABS: CLARITY URINE CLEAR (CLEAR); COLOR URINE YELLOW (YELLOW); KETONES URINE NEGATIVE (NEGATIVE); LEUKOCYTE ESTERASE URINE NEGATIVE (NEGATIVE); NITRITE URINE NEGATIVE (NEGATIVE); OCCULT BLOOD URINE NEGATIVE (NEGATIVE); PH URINE 7.5 (4.5-8.0); PROTEIN URINE TRACE (NEGATIVE); SPECIFIC GRAVITY URINE 1.015 (1.005-1.030); UROBILINOGEN URINE 0.2 E.U./dL (0.2-1.0)
[2022-02-27 22:55] LABS: BASOPHILS % 0.4 % (0.0-2.0); EOSINOPHILS % 1.3 % (0.0-5.0); HEMATOCRIT. 38.4 % (42.0-52.0); HEMOGLOBIN. 12.2 g/dL (14.0-18.0); LYMPHOCYTES % 53.8 % (20.0-50.0); MEAN CORPUSCULAR HEMOGLOBIN 26.1 pg (28.0-32.0); MEAN PLATELET VOLUME 8.2 fl (7.4-10.4); MONOCYTES % 9.5 % (2.0-8.0); PLATELET 243 x1000/uL (130-400); RED BLOOD CELL COUNT 4.69 mill/uL (4.7-6.1); RED CELL DISTRIBUTION WIDTH 15.2 % (11.6-14.6)
[2022-02-27 22:59] LABS: CHLORIDE 106 mEq/L (98-107)
[2022-02-27 23:07] LABS: ETHANOL BLOOD < 10 mg/dL
[2022-02-27 23:08] LABS: *AMPHETAMINES SCREEN URINE NEGATIVE (NEGATIVE); *BARBITURATES SCREEN URINE NEGATIVE (NEGATIVE); *BENZODIAZEPINES SCREEN URINE NEGATIVE (NEGATIVE); *COCAINE SCREEN URINE NEGATIVE (NEGATIVE); CANNABINOID URINE SCREEN NEGATIVE (NEGATIVE); METHADONE URINE SCREEN NEGATIVE (NEGATIVE); OPIATES URINE SCREEN NEGATIVE (NEGATIVE); PHENCYCLIDINE URINE SCREEN NEGATIVE (NEGATIVE)
[2022-02-27] MEDS ORDERED: QUETIAPINE FUMARATE 50MG TABLET PO SCH (23:15)
[2022-02-27] MEDS ORDERED: NON FORMULARY PATIENT HOME MED PO SCH (23:15)
[2022-02-28] MEDS ORDERED: LEVETIRACETAM 500MG TABLET PO ONE (05:30)
[2022-02-28] MEDS: GABAPENTIN 400MG CAPSULE PO SCH ×4 (06:06→22:00)
[2022-02-28] MEDS ORDERED: LEVETIRACETAM 500MG TABLET PO SCH (09:00)
[2022-02-28] MEDS ORDERED: VALPROIC ACID 250MG CAPSULE PO ONE (09:00)
[2022-02-28] MEDS ORDERED: METFORMIN HCL 500MG TABLET PO ONE (09:00)
[2022-02-28] MEDS ORDERED: LEVOTHYROXINE SODIUM 50MCG TABLET PO ONE (09:00)
[2022-02-28] MEDS: AMLODIPINE 10MG TABLET PO SCH (09:00)
[2022-02-28] MEDS ORDERED: QUETIAPINE FUMARATE 50MG TABLET PO SCH (09:00)
[2022-02-28] MEDS: TRIUMEQ 600-50-300 MG TAB PO SCH (10:08)
[2022-02-28] MEDS: TRAZODONE HCL 50MG TABLET PO SCH (22:00)
[2022-02-28] MEDS: QUETIAPINE FUMARATE 50MG TABLET PO SCH (22:00)
[2022-02-28] MEDS: BENAZEPRIL 5MG TABLET PO SCH (22:00)
[2022-03-01] MEDS: GABAPENTIN 400MG CAPSULE PO SCH ×3 (06:00→22:30)
[2022-03-01] MEDS: QUETIAPINE FUMARATE 50MG TABLET PO SCH ×2 (09:00→21:31)
[2022-03-01] MEDS: TRIUMEQ 600-50-300 MG TAB PO SCH (09:00)
[2022-03-01] MEDS: AMLODIPINE 10MG TABLET PO SCH (09:00)
[2022-03-01] MEDS: TRAZODONE HCL 50MG TABLET PO SCH (21:30)
[2022-03-01] MEDS: BENAZEPRIL 5MG TABLET PO SCH (21:30)
[2022-03-02] MEDS: GABAPENTIN 400MG CAPSULE PO SCH (06:17)
[2022-03-02] MEDS: TRIUMEQ 600-50-300 MG TAB PO SCH (10:06)
[2022-03-02] MEDS: AMLODIPINE 10MG TABLET PO SCH (10:06)
[2022-03-02] MEDS ORDERED: METFORMIN HCL 500MG TABLET PO SCH ×2 (11:04→17:00)
[2022-03-02] MEDS: QUETIAPINE FUMARATE 50MG TABLET PO SCH (11:14)
[2022-03-02 11:28] VITALS: BP 132/81
== END 2022-03-02 11:30 | disposition home or self-care (01) ==
LOC: ER 21:01
DX: F32.A Depression, unspecified (principal); F20.9 Schizophrenia, unspecified; R45.851 Suicidal ideations; F12.10 Cannabis abuse, uncomplicated; E11.9 Type 2 diabetes mellitus without complications; I10 Essential (primary) hypertension; E03.9 Hypothyroidism, unspecified; G40.909 Epilepsy, unspecified, not intractable, without status epilepticus; Z75.1 Person awaiting admission to adequate facility elsewhere; Z20.822 Contact with and (suspected) exposure to COVID-19; Z21 Asymptomatic human immunodeficiency virus [HIV] infection status; Z88.0 Allergy status to penicillin
CPT/HCPCS: 36415; 80053; 80305; 80307; 80320; 80329; 81003; 85025; 99285; C9803; U0003; U0005; Z7610; G0480

== ENCOUNTER 2022-04-30 03:03 | Emergency (ER) | payer MEDICAID | END 2022-04-30 06:25 | disposition left against medical advice (07) | LOC: ER 03:03 | DX: Z53.21 Procedure and treatment not carried out due to patient leaving prior to being seen by health care provider (principal) ==

== ENCOUNTER 2022-05-10 18:15 | Emergency (ER) | payer MEDICAID ==
[~2022-05-10] VITALS: Ht 177.8 cm; Wt 86.0 kg
[2022-05-10] MEDS ORDERED: OLANZAPINE 10 MG/VIAL IM STA (20:01)
[2022-05-10 20:36] LABS: BASOPHILS % 0.4 % (0.0-2.0); EOSINOPHILS % 1.4 % (0.0-5.0); HEMATOCRIT. 35.4 % (42.0-52.0); HEMOGLOBIN. 11.3 g/dL (14.0-18.0); LYMPHOCYTES % 62.4 % (20.0-50.0); MEAN CORPUSCULAR HEMOGLOBIN 26.1 pg (28.0-32.0); MEAN CORPUSCULAR VOLUME 81.9 fL (80.0-94.0); MEAN PLATELET VOLUME 8.3 fl (7.4-10.4); MONOCYTES % 10.1 % (2.0-8.0); NEUTROPHILS % 25.7 % (40.0-76.0); PLATELET 177 x1000/uL (130-400); RED BLOOD CELL COUNT 4.32 mill/uL (4.7-6.1); RED CELL DISTRIBUTION WIDTH 15.6 % (11.6-14.6)
[2022-05-10 20:58] LABS: CHLORIDE 108 mEq/L (98-107)
[2022-05-10 21:12] LABS: CREATINE KINASE 289 IU/L (39-308); ETHANOL BLOOD < 10 mg/dL
[2022-05-10 22:15] LABS: CLARITY URINE CLEAR (CLEAR); COLOR URINE YELLOW (YELLOW); KETONES URINE TRACE (NEGATIVE); LEUKOCYTE ESTERASE URINE NEGATIVE (NEGATIVE); NITRITE URINE NEGATIVE (NEGATIVE); OCCULT BLOOD URINE NEGATIVE (NEGATIVE); PROTEIN URINE TRACE (NEGATIVE); SPECIFIC GRAVITY URINE 1.015 (1.005-1.030); UROBILINOGEN URINE 0.2 E.U./dL (0.2-1.0)
[2022-05-10] MEDS ORDERED: OLANZAPINE 10 MG/VIAL IM NR (22:15)
[2022-05-10 22:29] LABS: *AMPHETAMINES SCREEN URINE NEGATIVE (NEGATIVE); *BARBITURATES SCREEN URINE NEGATIVE (NEGATIVE); *BENZODIAZEPINES SCREEN URINE NEGATIVE (NEGATIVE); *COCAINE SCREEN URINE NEGATIVE (NEGATIVE); CANNABINOID URINE SCREEN NEGATIVE (NEGATIVE); METHADONE URINE SCREEN NEGATIVE (NEGATIVE); OPIATES URINE SCREEN NEGATIVE (NEGATIVE); PHENCYCLIDINE URINE SCREEN NEGATIVE (NEGATIVE)
[2022-05-11 11:00] VITALS: BP 116/78
== END 2022-05-11 11:45 | disposition home or self-care (01) ==
LOC: ER 18:15
DX: F43.20 Adjustment disorder, unspecified (principal); F20.9 Schizophrenia, unspecified; R45.851 Suicidal ideations; F31.9 Bipolar disorder, unspecified; I10 Essential (primary) hypertension; E05.90 Thyrotoxicosis, unspecified without thyrotoxic crisis or storm; Z20.822 Contact with and (suspected) exposure to COVID-19; Z79.84 Long term (current) use of oral hypoglycemic drugs; Z88.0 Allergy status to penicillin
CPT/HCPCS: 36415; 71045; 80053; 80305; 80307; 80320; 80329; 81003; 82140; 82550; 84443; 85025; 87426; 93005; 96372; 99285; C9803; J3490; G0480